=== PATIENT | female | born 1990 | race Caucasian/White ===

== ENCOUNTER 2017-02-20 02:21 | Emergency (ER) | payer MEDICAID ==
[2017-02-20 03:14] LABS: HCG SERUM NEGATIVE (NEGATIVE)
[2017-02-20 05:08] LABS: APPEARANCE CLEAR (CLEAR); BILIRUBIN NEGATIVE (NEGATIVE); COLOR YELLOW (YELLOW); GLUCOSE NEGATIVE (NEGATIVE); KETONE NEGATIVE (NEGATIVE); LEUKOCYTE ESTERASE NEGATIVE (NEGATIVE); NITRITE NEGATIVE (NEGATIVE); PROTEIN TRACE mg/dL (NEGATIVE); RED CELLS - URINE 0-5 /hpf (0-5); UROBILINOGEN NORMAL (NORMAL); WHITE CELLS - URINE 0-5 /hpf (0-5)
[2017-02-23 06:13] LABS: CHLAMYDIA TRACHOMATIS, NAA Negative (Negative)
== END 2017-02-20 06:00 | disposition home or self-care (01) ==
LOC: D.ER 02:21
PROVIDERS: Family Medicine
DX: S30.814A Abrasion of vagina and vulva, initial encounter (principal); T76.21XA Adult sexual abuse, suspected, initial encounter; Y93.89 Activity, other specified; Y92.89 Other specified places as the place of occurrence of the external cause; K60.2 Anal fissure, unspecified; F41.9 Anxiety disorder, unspecified; F43.10 Post-traumatic stress disorder, unspecified; F17.200 Nicotine dependence, unspecified, uncomplicated